=== PATIENT | female | born 1945 | race Two or more races ===

== ENCOUNTER 2020-09-23 08:00 | Inpatient (IN) | payer OTHER ==
[~2020-09-23] VITALS: Ht 160 cm; Wt 62.6 kg
[2020-09-23] MEDS ORDERED: LIPITOR40 M1 PO (09:35)
[2020-09-23] MEDS ORDERED: FENOFIBRATE160 MG PO (09:35)
[2020-09-23] MEDS ORDERED: METHOTREXA25 MG/1 M5 SUBCUTANEO (09:35)
[2020-09-23] MEDS ORDERED: SYNTHROID75 MCG PO (09:36)
[2020-09-23] MEDS ORDERED: LOSARTAN-HCTZ1 EACH PO (09:36)
[2020-09-23] MEDS ORDERED: GABAPENTIN400 MG PO (09:36)
[2020-09-23] MEDS ORDERED: PLAVIX75 MG PO (09:36)
[2020-09-23] MEDS ORDERED: TRANXENE T-TAB7.5 MG PO (09:37)
[2020-10-03] MEDS ORDERED: ELIQUIS5 MG PO ×2 (12:25→12:32)
[2020-10-03] MEDS ORDERED: OXYC1TAB9 PO (12:27)
[2020-10-03] MEDS ORDERED: NORFLEX100MG PO (12:27)
[2020-10-03] MEDS ORDERED: GABAPENTIN100 MG PO (12:28)
== END 2020-10-04 13:46 | DRG 470 ==
LOC: SURH 09-30 06:00 → O/R 09-30 06:00 → SURH 09-30 06:45
PROVIDERS: ADMIT Orthopaedic Surgery; ATTEND Orthopaedic Surgery
PROC: 0SRC0J9 Replacement of Right Knee Joint with Synthetic Substitute, Cemented, Open Approach (ICD-10-PCS; principal; 2020-09-30 06:45)
PROC: 30233N1 Transfusion of Nonautologous Red Blood Cells into Peripheral Vein, Percutaneous Approach (ICD-10-PCS; 2020-10-02)
DX: M17.11 Unilateral primary osteoarthritis, right knee (principal); D62 Acute posthemorrhagic anemia; Z20.828 Contact with and (suspected) exposure to other viral communicable diseases